=== PATIENT | male | born 1990 | race Caucasian/White ===

== ENCOUNTER 2016-12-19 16:11 | Emergency (ER) | payer MEDICAID, SELFPAY ==
[~2016-12-19] VITALS: Ht 177.8 cm; Wt 86.4 kg
[~2016-12-19 16:11] MED LIST: /AUGM875TA OR; AUGMENTIN PO; COMBVENT INH; FISH1000 OR; GLIM1TAB OR; GLUC1000 OR; LISI2.5T OR; VITAMIN D-3 PO; prednisone PO; zpack PO
[2016-12-19 21:45] VITALS: BP 145/86
== END 2016-12-19 21:46 | disposition home or self-care (01) ==
LOC: M ED 16:11
DX: F43.0 Acute stress reaction (principal); I10 Essential (primary) hypertension; F17.200 Nicotine dependence, unspecified, uncomplicated; Z79.899 Other long term (current) drug therapy; Z88.2 Allergy status to sulfonamides; Z88.6 Allergy status to analgesic agent

== ENCOUNTER → 2016-12-31 | Outpatient (REF) | payer MEDICAID ==
[2016-12-31 12:10] LABS: ANION GAP 6 MEQ/L (8-16); BLOOD UREA NITROGEN 9 MG/DL (7-18); CALCIUM LEVEL 9.4 MG/DL (8.5-10.1); CARBON DIOXIDE LEVEL 34 MEQ/L (21-32); CHLORIDE LEVEL 96 MEQ/L (98-107); CREATININE FOR GFR 0.79 MG/DL (0.70-1.30); GLOMERULAR FILTRATION RATE > 60.0 (>60); GLUCOSE, FASTING 355 MG/DL (70-105); POTASSIUM SERUM 4.3 MEQ/L (3.5-5.1); SODIUM LEVEL 136 MEQ/L (136-145)
== END ==
LOC: M SFHCPLAZ 09:18
PROVIDERS: ATTEND Family Medicine
DX: Z86.39 Personal history of other endocrine, nutritional and metabolic disease (principal)

== ENCOUNTER 2017-02-26 16:00 | Outpatient (RCR) | payer MEDICAID | END 2017-02-27 | LOC: M OUTALCOH 16:00 | PROVIDERS: ATTEND Psychiatry & Neurology Psychiatry | DX: F10.10 Alcohol abuse, uncomplicated (principal) ==

== ENCOUNTER 2017-03-04 16:00 | Outpatient (RCR) | payer MEDICAID | END 2017-03-30 | LOC: M OUTALCOH 03-10 16:00 | DX: F10.10 Alcohol abuse, uncomplicated (principal) ==

== ENCOUNTER 2017-04-10 14:20 | Outpatient (RCR) | payer MEDICAID | END 2017-04-30 | LOC: M OUTALCOH 04-25 11:00 | DX: F10.10 Alcohol abuse, uncomplicated (principal) ==

== ENCOUNTER → 2017-05-10 | Outpatient (REF) | payer MEDICAID ==
[2017-05-10 14:40] LABS: INFLUENZA A AMPLIFICATION NEGATIVE (NEGATIVE); INFLUENZA B AMPLIFICATION NEGATIVE (NEGATIVE); RSV AMPLIFICATION NEGATIVE (NEGATIVE)
== END ==
LOC: M LAB REF 13:51
DX: J11.1 Influenza due to unidentified influenza virus with other respiratory manifestations (principal)

== ENCOUNTER → 2017-05-28 | Outpatient (REF) | payer OTHER ==
[2017-05-28 13:20] LABS: ESTIMATED AVERAGE GLUCOSE 180 MG/DL (60-110); HEMOGLOBIN A1c 7.9 %
== END ==
LOC: M SFHCPLAZ 08:21
DX: E11.65 Type 2 diabetes mellitus with hyperglycemia (principal)
CPT/HCPCS: 83036

== ENCOUNTER → 2017-09-29 | Outpatient (REF) | payer OTHER ==
[2017-09-29 12:00] LABS: ANION GAP 9 MEQ/L (8-16); BLOOD UREA NITROGEN 10 MG/DL (7-18); CALCIUM LEVEL 8.9 MG/DL (8.5-10.1); CARBON DIOXIDE LEVEL 30 MEQ/L (21-32); CHLORIDE LEVEL 101 MEQ/L (98-107); CHOLESTEROL LEVEL 175 MG/DL (<200); CREATININE FOR GFR 0.97 MG/DL (0.70-1.30); GLOMERULAR FILTRATION RATE > 60.0 (>60); GLUCOSE, FASTING 184 MG/DL (70-100); HDL CHOLESTEROL 28 MG/DL (>40); LDL CHOLESTEROL 104.2 MG/DL (<100); NON-HDL-C 147 MG/DL; SODIUM LEVEL 140 MEQ/L (136-145); TRIGLYCERIDES LEVEL 214 MG/DL (<150)
[2017-09-29 13:19] LABS: ESTIMATED AVERAGE GLUCOSE 171 MG/DL (60-110); HEMOGLOBIN A1c 7.6 %
== END ==
LOC: M SFHCPLAZ 08:51
DX: E11.9 Type 2 diabetes mellitus without complications (principal); E78.2 Mixed hyperlipidemia
CPT/HCPCS: 83036

== ENCOUNTER 2017-11-04 05:08 | Emergency (ER) | payer OTHER ==
[2017-11-04] MEDS: TETANUS/DIPHTHERIA TOX ADSORB ADULT 0.5ML SYR/VIAL (90714) IM (07:50)
[2017-11-04] MEDS: ONDANSETRON 4MG/2ML VIAL (J2405) IV (10:07)
[2017-11-04] MEDS: MORPHINE 4 MG/ML 1ML VIAL/SYRINGE (J2270) IV (10:07)
[2017-11-04] MEDS: LORazepam 2 MG/ML VIAL (J2060) IV (10:08)
[2017-11-04] MEDS ORDERED: POLYSPORIN TOPICAL OINTMENT 15GM As Ordered (12:39)
[2017-11-04] MEDS: POLYSPORIN TOPICAL OINTMENT 15GM TOP (12:49)
== END 2017-11-04 15:02 | disposition home or self-care (01) ==
LOC: M ED 05:08
DX: S12.691A Other nondisplaced fracture of seventh cervical vertebra, initial encounter for closed fracture (principal); S50.851A Superficial foreign body of right forearm, initial encounter; S00.03XA Contusion of scalp, initial encounter; V48.5XXA Car driver injured in noncollision transport accident in traffic accident, initial encounter; Y92.410 Unspecified street and highway as the place of occurrence of the external cause; F17.200 Nicotine dependence, unspecified, uncomplicated; Z88.6 Allergy status to analgesic agent; Z88.2 Allergy status to sulfonamides; Z79.84 Long term (current) use of oral hypoglycemic drugs
CPT/HCPCS: 90714

== ENCOUNTER → 2018-01-01 | Outpatient (REF) | payer OTHER, SELFPAY ==
[2018-01-01 16:29] LABS: ESTIMATED AVERAGE GLUCOSE 154 MG/DL (60-110)
== END ==
LOC: M SFHCPLAZ 14:05
DX: E11.42 Type 2 diabetes mellitus with diabetic polyneuropathy (principal); G62.9 Polyneuropathy, unspecified
CPT/HCPCS: 82607

== ENCOUNTER → 2018-07-03 | Outpatient (REF) | payer OTHER ==
[~2018-07-03] MED LIST changes: +GLIP5TAB8 PO; +HYDR-3715 PO; +KEFL500C17 PO; +METF10004 PO; +TRUL10IN SC; +[UNRECOGNIZED DRUG - CODE] PO; +[UNRECOGNIZED DRUG - SUPPLY] XX; +test XX
[2018-07-03 17:35] LABS: INFLUENZA A AMPLIFICATION NEGATIVE (NEGATIVE); INFLUENZA B AMPLIFICATION NEGATIVE (NEGATIVE)
== END ==
LOC: M LAB REF 16:48
PROVIDERS: ATTEND Physician Assistant
DX: J11.1 Influenza due to unidentified influenza virus with other respiratory manifestations (principal)

== ENCOUNTER → 2018-07-09 | Outpatient (REF) | payer OTHER ==
[2018-07-09 13:54] LABS: INR 0.89; PROTHROMBIN TIME 12.1 SECONDS (12.1-14.4)
[2018-07-09 13:55] LABS: PARTIAL THROMBOPLASTIN TIME 26.3 SECONDS (25.4-37.6)
== END ==
LOC: M LABDRAW1 13:00
PROVIDERS: ATTEND Physical Medicine & Rehabilitation
DX: Z01.812 Encounter for preprocedural laboratory examination (principal)

== ENCOUNTER → 2018-07-20 | Outpatient (REF) | payer OTHER ==
[2018-07-20 16:15] LABS: BLOOD UREA NITROGEN 11 MG/DL (7-18); CREATININE FOR GFR 0.77 MG/DL (0.70-1.30); GLOMERULAR FILTRATION RATE > 60.0 (>60)
== END ==
LOC: M LABDRAW1 15:29
PROVIDERS: ATTEND Physician Assistant
DX: M47.27 Other spondylosis with radiculopathy, lumbosacral region (principal); M51.37 Other intervertebral disc degeneration, lumbosacral region

== ENCOUNTER → 2019-12-17 | Outpatient (CLI) | payer OTHER ==
[2019-12-17 15:36] LABS: BLOOD UREA NITROGEN 12 MG/DL (7-18); C REACTIVE PROTEIN QUANTITATIV 0.41 MG/DL (0.00-0.30); CREATININE FOR GFR 0.81 MG/DL (0.70-1.30); GLOMERULAR FILTRATION RATE > 60.0 (>60); RHEUMATOID FACTOR QUANT < 10.0 IU/ML (<15.0)
[2019-12-22 13:08] LABS: ANTINUCLEAR ANTIBODIES DIRECT Negative (Negative); HLA-B27 Negative (.)
== END ==
LOC: M PLALAB 12:18
PROVIDERS: ATTEND Physician Assistant
DX: M51.27 Other intervertebral disc displacement, lumbosacral region (principal)

== ENCOUNTER → 2019-12-27 | Outpatient (CLI) | payer OTHER ==
[2019-12-27 16:47] LABS: HEMOGLOBIN A1c 11.5 %
[2019-12-27 16:59] LABS: CREATININE, URINE 91.4 MG/DL; MALB URINE SIEMENS 19.5 MG/L; MAU/CREAT RATIO 21.3 MCG/MG (0.0-30.0)
[2019-12-27 17:00] LABS: ALBUMIN 4.2 GM/DL (3.2-5.2); ALT/SGPT 57 U/L (12-78); BILIRUBIN,TOTAL 0.8 MG/DL (0.2-1.0); BLOOD UREA NITROGEN 9 MG/DL (7-18); CALCIUM LEVEL 9.2 MG/DL (8.5-10.1); CARBON DIOXIDE LEVEL 32 MEQ/L (21-32); CHLORIDE LEVEL 99 MEQ/L (98-107); CHOLESTEROL LEVEL 259 MG/DL (<200); CHOLESTEROL RISK RATIO 8.093 (<5); CREATININE FOR GFR 0.84 MG/DL (0.70-1.30); FREE T4 0.99 NG/DL (0.76-1.46); GLOMERULAR FILTRATION RATE > 60.0 (>60); GLUCOSE, FASTING 286 MG/DL (70-100); HDL CHOLESTEROL 32 MG/DL (>40); NON-HDL-C 227 MG/DL; POTASSIUM SERUM 4.2 MEQ/L (3.5-5.1); SODIUM LEVEL 136 MEQ/L (136-145); TOTAL PROTEIN 7.3 GM/DL (6.4-8.2); TRIGLYCERIDES LEVEL 499 MG/DL (<150)
== END ==
LOC: M PLALAB 13:48
PROVIDERS: ATTEND Physician Assistant
DX: E11.9 Type 2 diabetes mellitus without complications (principal); E78.2 Mixed hyperlipidemia; Z13.29 Encounter for screening for other suspected endocrine disorder; R00.0 Tachycardia, unspecified

== ENCOUNTER → 2020-04-10 | Outpatient (CLI) | payer OTHER | LOC: M LABSMTC 12:20 | PROVIDERS: ATTEND Family Medicine | DX: Z20.822 Contact with and (suspected) exposure to COVID-19 (principal) ==

== ENCOUNTER → 2020-05-10 | Outpatient (CLI) | payer OTHER ==
[2020-05-10 13:13] LABS: COLLAGEN EPINEPHRINE 157 SECONDS (74-162)
[2020-05-10 13:16] LABS: INR 0.81; PROTHROMBIN TIME 11.3 SECONDS (12.5-14.3)
[2020-05-10 13:17] LABS: PARTIAL THROMBOPLASTIN TIME 24.3 SECONDS (24.2-38.5)
== END ==
LOC: M PLALAB 11:27
PROVIDERS: ATTEND Physician Assistant
DX: M51.27 Other intervertebral disc displacement, lumbosacral region (principal)

== ENCOUNTER → 2020-05-16 | Outpatient (REF) | payer OTHER ==
[2020-05-16 15:40] LABS: HEMOGLOBIN A1c 12.4 %
[2020-05-16 15:49] LABS: BLOOD UREA NITROGEN 10 MG/DL (7-18); CALCIUM LEVEL 9.9 MG/DL (8.5-10.1); CARBON DIOXIDE LEVEL 33 MEQ/L (21-32); CHLORIDE LEVEL 96 MEQ/L (98-107); CHOLESTEROL LEVEL 316 MG/DL (<200); CHOLESTEROL RISK RATIO 10.896 (<5); CREATININE FOR GFR 0.83 MG/DL (0.70-1.30); GLOMERULAR FILTRATION RATE > 60.0 (>60); GLUCOSE, FASTING 328 MG/DL (70-100); HDL CHOLESTEROL 29 MG/DL (>40); NON-HDL-C 287 MG/DL; POTASSIUM SERUM 4.8 MEQ/L (3.5-5.1); SODIUM LEVEL 135 MEQ/L (136-145); TRIGLYCERIDES LEVEL 1368 MG/DL (<150)
== END ==
LOC: M SFHCPLAZ 12:47
PROVIDERS: ATTEND Physician Assistant
DX: E78.2 Mixed hyperlipidemia (principal); E11.65 Type 2 diabetes mellitus with hyperglycemia

== ENCOUNTER → 2020-06-12 | Outpatient (CLI) | payer OTHER ==
[2020-06-12 13:06] LABS: PLATELET COUNT, AUTOMATED 307 10^3/uL (150-450)
== END ==
LOC: M PLALAB 11:43
PROVIDERS: ATTEND Physical Medicine & Rehabilitation
DX: Z01.818 Encounter for other preprocedural examination (principal); Z79.899 Other long term (current) drug therapy

== ENCOUNTER → 2020-08-17 | Outpatient (REF) | payer OTHER ==
[2020-08-17 14:05] LABS: ALBUMIN 4.1 GM/DL (3.2-5.2); ALT/SGPT 66 U/L (12-78); BILIRUBIN,TOTAL 0.6 MG/DL (0.2-1.0); BLOOD UREA NITROGEN 11 MG/DL (7-18); CALCIUM LEVEL 9.2 MG/DL (8.5-10.1); CARBON DIOXIDE LEVEL 27 MEQ/L (21-32); CHLORIDE LEVEL 100 MEQ/L (98-107); CREATININE FOR GFR 0.69 MG/DL (0.70-1.30); GLOMERULAR FILTRATION RATE > 60.0 (>60); GLUCOSE, FASTING 313 MG/DL (70-100); POTASSIUM SERUM 4.2 MEQ/L (3.5-5.1); SODIUM LEVEL 135 MEQ/L (136-145); TOTAL PROTEIN 7.1 GM/DL (6.4-8.2)
[2020-08-17 14:48] LABS: HEMOGLOBIN A1c 11.2 %
== END ==
LOC: M PLALAB 09:18
PROVIDERS: ATTEND Physician Assistant
DX: E11.65 Type 2 diabetes mellitus with hyperglycemia (principal)

== ENCOUNTER → 2020-11-12 | Outpatient (CLI) | payer OTHER ==
--- NOTE | 2020-11-12 12:05 | REPVR ---
PROCEDURE INFORMATION: Exam: MR Lumbar Spine Without Contrast Exam date and time: 11/12/2020 9:14 AM Age: 29 years old Clinical indication: Low back pain; Additional info: Disc degeneration, R/O hnp/stenosis TECHNIQUE: Imaging protocol: Multiplanar magnetic resonance images of the lumbar spine without intravenous contrast. COMPARISON: No relevant prior studies available. FINDINGS: Vertebrae: Unremarkable. Spinal cord: Normal signal. No cord compression. L1-L2: No significant disc disease. No significant spinal canal stenosis. No neural foraminal stenosis. L2-L3: No significant disc disease. No significant spinal canal stenosis. No neural foraminal stenosis. L3-L4: No significant disc disease. No significant spinal canal stenosis. No neural foraminal stenosis. L4-L5: Mild diffuse disc bulge with mild bilateral facet joint arthropathy without any significant central spinal canal stenosis or right neural foraminal narrowing. Mild left neural foraminal narrowing. L5-S1: Disc desiccation, mild diffuse disc bulge with small central disc protrusion with annular fissure and mild bilateral facet joint arthropathy resulting in mild indentation on thecal sac, moderate right neural foraminal narrowing with abutment of exiting right L5 nerve root. Left neural foramina is patent. Soft tissues: Unremarkable. IMPRESSION: L4-L5: Mild diffuse disc bulge with mild bilateral facet joint arthropathy without any significant central spinal canal stenosis or right neural foraminal narrowing. Mild left neural foraminal narrowing. L5-S1: Disc desiccation, mild diffuse disc bulge with small central disc protrusion with annular fissure and mild bilateral facet joint arthropathy resulting in mild indentation on thecal sac, moderate right neural foraminal narrowing with abutment of exiting right L5 nerve root. Left neural foramina is patent. Electronically signed by: Ivana Sexton On 11/12/2020 12:05:22 PM
== END ==
LOC: M RAD 08:27
PROVIDERS: ATTEND Physician Assistant Surgical
DX: M51.36 Other intervertebral disc degeneration, lumbar region (principal)

== ENCOUNTER → 2020-11-20 | Outpatient (CLI) | payer OTHER ==
[2020-11-20 13:55] LABS: HEMOGLOBIN A1c 11.4 %
[2020-11-20 14:02] LABS: BLOOD UREA NITROGEN 11 MG/DL (7-18); CALCIUM LEVEL 9.2 MG/DL (8.5-10.1); CARBON DIOXIDE LEVEL 29 MEQ/L (21-32); CHLORIDE LEVEL 98 MEQ/L (98-107); CREATININE FOR GFR 0.81 MG/DL (0.70-1.30); GLOMERULAR FILTRATION RATE > 60.0 (>60); GLUCOSE, FASTING 316 MG/DL (70-100); POTASSIUM SERUM 4.7 MEQ/L (3.5-5.1); SODIUM LEVEL 135 MEQ/L (136-145)
== END ==
LOC: M PLALAB 11:12
PROVIDERS: ATTEND Physician Assistant
DX: E11.65 Type 2 diabetes mellitus with hyperglycemia (principal)

== ENCOUNTER → 2021-01-01 | Outpatient (CLI) | payer OTHER ==
--- NOTE | 2021-01-03 11:25 | REPVR ---
PROCEDURE INFORMATION: Exam: MR Head Without Contrast Exam date and time: 01/01/2021 6:44 PM Age: 30 years old Clinical indication: Pain; Headache not specified; Additional info: Acute intractable headache TECHNIQUE: Imaging protocol: MR of the head without contrast. COMPARISON: CT Head without contrast 11/04/2017 6:34 AM FINDINGS: Brain: No acute infarct identified on the diffusion-weighted imaging. No parenchymal hemorrhage. No evidence of brain parenchymal edema or intracranial mass effect. No significant white matter disease. Cerebral ventricles: No ventriculomegaly. Bones/joints: Unremarkable. Paranasal sinuses: Normal as visualized. No acute sinusitis. Mastoid air cells: Normal as visualized. No mastoid effusion. Orbital cavity: Unremarkable. Soft tissues: Unremarkable. IMPRESSION: Unremarkable MRI brain. Electronically signed by: Danna Corea On 01/03/2021 11:25:11 AM
== END ==
LOC: M RAD 17:18
PROVIDERS: ATTEND Physician Assistant
DX: R51.9 Headache, unspecified (principal)

== ENCOUNTER → 2021-02-21 | Outpatient (CLI) | payer OTHER ==
[~2021-02-21] MED LIST changes: +ISOVUE-300 61% 50ML VIAL As Ordered ONE; +LIDOCAINE 1% MDV 20ML VIAL As Ordered ONE; +methylPREDNISolone SUSP 40MG/ML 1ML VIAL (DEPO MEDROL) As Ordered ONE
--- NOTE | 2021-02-21 16:36 | REP ---
INDICATION: OTHER ARTICULAR CARTILAGE DISORDERS, RIGHT HIP. COMPARISON: None. TECHNIQUE: The procedure was performed under the direct supervision of Dr. Aguayo. The benefits and risks including but not limited to pain infection and bleeding and anaphylaxis were explained to the patient and informed consent was obtained. The right femoral neck was localized using fluoroscopic guidance. The skin was prepped and draped in a sterile fashion. 1% lidocaine was used as a local anesthetic. Using fluoroscopic guidance, and last image hold technology, a 22-gauge spinal needle was inserted and advanced to the femoral neck. 0.5 ml of Isovue-300 was injected to verify placement. Five ml of a solution containing 3 ml of 1% Xylocaine and 2 mL of Depo-Medrol 40 mg was injected. The needle was then removed. The patient tolerated the procedure well and there were no immediate complications. Less than 6 seconds of fluoro time was utilized for this procedure. FINDINGS: None IMPRESSION: Fluoro guidance for right hip injection. <Electronically signed by Paddy Newberry > 02/21/21 1603 <Electronically signed by Pravin Aguayo > 02/21/21 [id number]
== END ==
LOC: M RADPRO 10:31
PROVIDERS: ATTEND Physician Assistant Surgical
DX: M24.151 Other articular cartilage disorders, right hip (principal)
CPT/HCPCS: 20610; 77002; J1030; Q9967

== ENCOUNTER → 2021-02-28 | Outpatient (CLI) | payer OTHER ==
[~2021-02-28] MED LIST changes: -ISOVUE-300 61% 50ML VIAL As Ordered ONE; -LIDOCAINE 1% MDV 20ML VIAL As Ordered ONE; +[UNRECOGNIZED DRUG - CODE] PO; -[UNRECOGNIZED DRUG - CODE] PO; -methylPREDNISolone SUSP 40MG/ML 1ML VIAL (DEPO MEDROL) As Ordered ONE
[2021-02-28 13:37] LABS: HEMOGLOBIN A1c 10.2 %
[2021-02-28 13:44] LABS: MALB URINE SIEMENS 29.3 MG/L
[2021-02-28 13:56] LABS: ALBUMIN 4.2 GM/DL (3.2-5.2); ALT/SGPT 59 U/L (12-78); BILIRUBIN,TOTAL 0.5 MG/DL (0.2-1.0); BLOOD UREA NITROGEN 14 MG/DL (7-18); CALCIUM LEVEL 10.9 MG/DL (8.5-10.1); CARBON DIOXIDE LEVEL 34 MEQ/L (21-32); CHLORIDE LEVEL 95 MEQ/L (98-107); CHOLESTEROL LEVEL 232 MG/DL (<200); CHOLESTEROL RISK RATIO 8.285 (<5); CREATININE FOR GFR 0.87 MG/DL (0.70-1.30); GLOMERULAR FILTRATION RATE > 60.0 (>60); GLUCOSE, FASTING 284 MG/DL (70-100); HDL CHOLESTEROL 28 MG/DL (>40); NON-HDL-C 204 MG/DL; POTASSIUM SERUM 4.4 MEQ/L (3.5-5.1); SODIUM LEVEL 135 MEQ/L (136-145); TOTAL PROTEIN 7.8 GM/DL (6.4-8.2); TRIGLYCERIDES LEVEL 617 MG/DL (<150)
[2021-02-28 13:58] LABS: TOTAL 25(OH) VITAMIN D 14.6 NG/ML (30.0-100.0)
== END ==
LOC: M PLALAB 10:08
PROVIDERS: ATTEND Nurse Practitioner Adult Health
DX: E11.65 Type 2 diabetes mellitus with hyperglycemia (principal); R25.2 Cramp and spasm; E78.2 Mixed hyperlipidemia; Z13.29 Encounter for screening for other suspected endocrine disorder

== ENCOUNTER → 2021-05-15 | Outpatient (CLI) | payer OTHER ==
[2021-05-15 11:19] LABS: BASO # 0.1 10^3/uL (0.0-0.2); BASO % 0.7 % (0.0-1.0); EOS # 0.3 10^3/uL (0.0-0.5); EOS % 3.7 % (0.0-3.0); HEMATOCRIT 51.2 % (42.0-52.0); HEMOGLOBIN 17.3 g/dl (13.5-17.5); LYMPH # 2.6 10^3/uL (1.5-5.0); LYMPH % 31.3 % (24.0-44.0); MEAN CORPUSCULAR HGB CONC 33.8 g/dl (32.0-36.5); MEAN CORPUSCULAR VOLUME 88.9 fl (80.0-96.0); MONO # 0.6 10^3/uL (0.0-0.8); MONO % 7.4 % (2.0-8.0); NEUTROPHILS # 4.7 10^3/uL (1.5-8.5); NEUTROPHILS % 56.5 % (36.0-66.0); PLATELET COUNT, AUTOMATED 295 10^3/uL (150-450); RED BLOOD COUNT 5.76 10^6/uL (4.30-6.10); WHITE BLOOD COUNT 8.3 10^3/uL (4.0-10.0)
[2021-05-15 11:48] LABS: ALT/SGPT 61 U/L (12-78); BILIRUBIN,TOTAL 0.6 MG/DL (0.2-1.0); BLOOD UREA NITROGEN 8 MG/DL (7-18); CALCIUM LEVEL 9.1 MG/DL (8.5-10.1); CARBON DIOXIDE LEVEL 29 MEQ/L (21-32); CHLORIDE LEVEL 100 MEQ/L (98-107); CREATININE FOR GFR 0.77 MG/DL (0.70-1.30); GLOMERULAR FILTRATION RATE > 60.0 (>60); GLUCOSE, FASTING 258 MG/DL (70-100); POTASSIUM SERUM 4.7 MEQ/L (3.5-5.1); SODIUM LEVEL 136 MEQ/L (136-145)
[2021-05-15 12:07] LABS: HEMOGLOBIN A1c 9.2 %
== END ==
LOC: M PLALAB 08:51
PROVIDERS: ATTEND Internal Medicine
DX: Z01.818 Encounter for other preprocedural examination (principal)

== ENCOUNTER → 2021-05-15 | Outpatient (REF) | payer OTHER | LOC: M SFHCPLAZ 08:30 | PROVIDERS: ATTEND Internal Medicine | DX: Z01.818 Encounter for other preprocedural examination (principal); E11.65 Type 2 diabetes mellitus with hyperglycemia; Z53.9 Procedure and treatment not carried out, unspecified reason ==

== ENCOUNTER → 2021-06-08 | Outpatient (CLI) | payer OTHER | LOC: M RAD 07:30 | PROVIDERS: ATTEND Nurse Practitioner Adult Health | DX: K76.0 Fatty (change of) liver, not elsewhere classified (principal) ==

== ENCOUNTER → 2022-06-18 | Outpatient (CLI) | payer OTHER ==
[2022-06-18 14:02] LABS: HEMATOCRIT 53.4 % (42.0-52.0); HEMOGLOBIN 17.7 g/dl (13.5-17.5); MEAN CORPUSCULAR HEMOGLOBIN 30.8 pg (27.0-33.0); MEAN CORPUSCULAR HGB CONC 33.1 g/dl (32.0-36.5); PLATELET COUNT, AUTOMATED 260 10^3/uL (150-450); RED BLOOD COUNT 5.74 10^6/uL (4.30-6.10); WHITE BLOOD COUNT 10.2 10^3/uL (4.0-10.0)
[2022-06-18 14:11] LABS: ALBUMIN 4.4 G/DL (3.2-5.2); ALKALINE PHOSPHATASE 86 U/L (46-116); ALT/SGPT 45 U/L (7.0-40); AST/SGOT 18 U/L (<34); BILIRUBIN,TOTAL 1.2 MG/DL (0.3-1.2); BLOOD UREA NITROGEN 16 MG/DL (9-23); CALCIUM LEVEL 9.5 MG/DL (8.5-10.1); CARBON DIOXIDE LEVEL 34 MMOL/L (20-31); CHLORIDE LEVEL 98 MMOL/L (98-107); CHOLESTEROL LEVEL 112 MG/DL (<200); CHOLESTEROL RISK RATIO 3.83 (<5); CREATININE FOR GFR 0.68 MG/DL (0.70-1.30); GLOMERULAR FILTRATION RATE > 60.0 (>60); GLUCOSE, FASTING 213 MG/DL (60-100); HDL CHOLESTEROL 29.2 MG/DL (>40); HEMOGLOBIN A1c 7.6 % (4.0-6.0); LDL CHOLESTEROL 45.8 MG/DL (<100); MAGNESIUM LEVEL 1.9 MG/DL (1.8-2.4); NON-HDL-C 82.8 MG/DL; POTASSIUM SERUM 4.1 MMOL/L (3.5-5.1); SODIUM LEVEL 138 MMOL/L (136-145); TOTAL PROTEIN 6.9 G/DL (5.7-8.2); TRIGLYCERIDES LEVEL 185 MG/DL (<150)
[2022-06-18 14:12] LABS: CREATININE, URINE 52.1 MG/DL; THYROID STIMULATING HORMONE 1.212 uIU/ML (0.55-4.78); TOTAL 25(OH) VITAMIN D 51.6 NG/ML (20.0-100.0)
[2022-06-18 14:14] LABS: MAU/CREAT RATIO 11.5 MCG/MG (0.0-30.0)
== END ==
LOC: M PLALAB 10:43
PROVIDERS: ATTEND Nurse Practitioner Adult Health
DX: E11.65 Type 2 diabetes mellitus with hyperglycemia (principal); E78.2 Mixed hyperlipidemia; R25.2 Cramp and spasm; E55.9 Vitamin D deficiency, unspecified; Z13.29 Encounter for screening for other suspected endocrine disorder

== ENCOUNTER → 2022-06-27 | Outpatient (CLI) | payer OTHER | LOC: M PLAIMG 14:05 | PROVIDERS: ATTEND Nurse Practitioner Adult Health | DX: M25.551 Pain in right hip (principal) ==

== ENCOUNTER → 2022-07-29 | Outpatient (CLI) | payer OTHER | LOC: M WHC 10:19 | PROVIDERS: ATTEND Nurse Practitioner Adult Health | DX: K76.0 Fatty (change of) liver, not elsewhere classified (principal) ==

== ENCOUNTER 2023-03-12 22:24 | Emergency (ER) | payer OTHER ==
[~2023-03-12] VITALS: Ht 180.3 cm; Wt 97.3 kg
[~2023-03-12 22:24] MED LIST changes: +GLIP5TAB17 PO; -GLIP5TAB8 PO
[2023-03-12] MEDS ORDERED: BASA100I (22:36)
[2023-03-12] MEDS ORDERED: ERGO500029 (22:36)
[2023-03-12] MEDS ORDERED: STEG15TA (22:36)
[2023-03-12] MEDS ORDERED: DULA4.5P (22:36)
[2023-03-12] MEDS ORDERED: ATOR40TA75 (22:36)
[2023-03-12 23:07] LABS: BASO # 0.1 10^3/uL (0.0-0.2); BASO % 0.4 % (0.0-1.0); EOS % 0.3 % (0.0-3.0); HEMATOCRIT 54.3 % (42.0-52.0); HEMOGLOBIN 18.4 g/dl (13.5-17.5); LYMPH # 1.7 10^3/uL (1.5-5.0); LYMPH % 11.7 % (24.0-44.0); MEAN CORPUSCULAR HEMOGLOBIN 29.7 pg (27.0-33.0); MEAN CORPUSCULAR HGB CONC 33.9 g/dl (32.0-36.5); MEAN CORPUSCULAR VOLUME 87.7 fl (80.0-96.0); MONO # 0.6 10^3/uL (0.0-0.8); MONO % 4.4 % (2.0-8.0); NEUTROPHILS # 11.7 10^3/uL (1.5-8.5); NEUTROPHILS % 82.6 % (36.0-66.0); PLATELET COUNT, AUTOMATED 295 10^3/uL (150-450); RED BLOOD COUNT 6.19 10^6/uL (4.30-6.10); WHITE BLOOD COUNT 14.1 10^3/uL (4.0-10.0)
[2023-03-12 23:28] LABS: LIPASE 24 U/L (12-53)
[2023-03-12 23:30] LABS: ALBUMIN 4.7 G/DL (3.2-5.2); ALKALINE PHOSPHATASE 79 U/L (46-116); ALT/SGPT 45 U/L (7.0-40); AST/SGOT 19 U/L (<34); BILIRUBIN,DIRECT 0.4 MG/DL (<0.4); BILIRUBIN,TOTAL 1.4 MG/DL (0.3-1.2); BLOOD UREA NITROGEN 17 MG/DL (9-23); CALCIUM LEVEL 9.4 MG/DL (8.5-10.1); CARBON DIOXIDE LEVEL 23 MMOL/L (20-31); CHLORIDE LEVEL 98 MMOL/L (98-107); CREATININE FOR GFR 0.69 MG/DL (0.70-1.30); GLOMERULAR FILTRATION RATE > 60.0 (>60); GLUCOSE, FASTING 108 MG/DL (60-100); SODIUM LEVEL 137 MMOL/L (136-145); TOTAL PROTEIN 7.6 G/DL (5.7-8.2)
[2023-03-13] MEDS ORDERED: NS 1,000 ML IV ONE (01:05)
[2023-03-13] MEDS ORDERED: ONDA4TAB6 PO (03:10)
[2023-03-13 04:22] VITALS: BP 123/78; TEMP 97.9; O2SAT 99
== END 2023-03-13 04:23 | disposition home or self-care (01) ==
LOC: M ED 22:24
DX: K80.20 Calculus of gallbladder without cholecystitis without obstruction (principal); R00.0 Tachycardia, unspecified; E11.9 Type 2 diabetes mellitus without complications; E78.5 Hyperlipidemia, unspecified; F17.200 Nicotine dependence, unspecified, uncomplicated; F10.10 Alcohol abuse, uncomplicated; Z88.2 Allergy status to sulfonamides; Z88.6 Allergy status to analgesic agent; Z79.02 Long term (current) use of antithrombotics/antiplatelets; Z79.4 Long term (current) use of insulin; Z79.83 Long term (current) use of bisphosphonates; Z79.899 Other long term (current) drug therapy

== ENCOUNTER → 2023-03-19 | Outpatient (CLI) | payer OTHER ==
[~2023-03-19] MED LIST changes: +ATOR40TA75; +BASA100I; +DULA4.5P; +ERGO500029; +ONDA4TAB6 PO; +STEG15TA
[2023-03-19 14:00] LABS: HEMATOCRIT 52.1 % (42.0-52.0); HEMOGLOBIN 17.9 g/dl (13.5-17.5); MEAN CORPUSCULAR HEMOGLOBIN 30.6 pg (27.0-33.0); MEAN CORPUSCULAR HGB CONC 34.4 g/dl (32.0-36.5); MEAN CORPUSCULAR VOLUME 89.1 fl (80.0-96.0); PLATELET COUNT, AUTOMATED 302 10^3/uL (150-450); RED BLOOD COUNT 5.85 10^6/uL (4.30-6.10); WHITE BLOOD COUNT 7.2 10^3/uL (4.0-10.0)
[2023-03-19 14:24] LABS: HEMOGLOBIN A1c 8.3 % (4.0-6.0)
[2023-03-19 14:30] LABS: ALBUMIN 4.5 G/DL (3.2-5.2); ALKALINE PHOSPHATASE 73 U/L (46-116); ALT/SGPT 43 U/L (7.0-40); AST/SGOT 13 U/L (<34); BILIRUBIN,TOTAL 0.8 MG/DL (0.3-1.2); BLOOD UREA NITROGEN 10 MG/DL (9-23); CALCIUM LEVEL 10.4 MG/DL (8.5-10.1); CARBON DIOXIDE LEVEL 33 MMOL/L (20-31); CHLORIDE LEVEL 103 MMOL/L (98-107); CREATININE FOR GFR 0.65 MG/DL (0.70-1.30); GLOMERULAR FILTRATION RATE > 60.0 (>60); GLUCOSE, FASTING 125 MG/DL (60-100); POTASSIUM SERUM 4.7 MMOL/L (3.5-5.1); SODIUM LEVEL 140 MMOL/L (136-145); TOTAL PROTEIN 7.1 G/DL (5.7-8.2)
== END ==
LOC: M PLALAB 10:36
PROVIDERS: ATTEND Nurse Practitioner Adult Health
DX: K81.9 Cholecystitis, unspecified (principal); E11.65 Type 2 diabetes mellitus with hyperglycemia

== ENCOUNTER → 2023-06-02 | Outpatient (CLI) | payer OTHER ==
[2023-06-02 13:19] LABS: ALBUMIN 4.1 G/DL (3.2-5.2); ALKALINE PHOSPHATASE 86 U/L (46-116); ALT/SGPT 40 U/L (7.0-40); AST/SGOT 15 U/L (<34); BILIRUBIN,TOTAL 0.6 MG/DL (0.3-1.2); BLOOD UREA NITROGEN 12 MG/DL (9-23); CALCIUM LEVEL 9.2 MG/DL (8.5-10.1); CARBON DIOXIDE LEVEL 33 MMOL/L (20-31); CHLORIDE LEVEL 102 MMOL/L (98-107); CREATININE FOR GFR 0.75 MG/DL (0.70-1.30); GLOMERULAR FILTRATION RATE > 60.0 (>60); GLUCOSE, FASTING 190 MG/DL (60-100); POTASSIUM SERUM 4.8 MMOL/L (3.5-5.1); SODIUM LEVEL 138 MMOL/L (136-145); TOTAL PROTEIN 6.7 G/DL (5.7-8.2)
[2023-06-02 13:27] LABS: HEMOGLOBIN A1c 9.3 % (4.0-6.0)
== END ==
LOC: M PLALAB 10:56
PROVIDERS: ATTEND Nurse Practitioner Adult Health
DX: E11.65 Type 2 diabetes mellitus with hyperglycemia (principal); K81.9 Cholecystitis, unspecified

== ENCOUNTER → 2023-08-14 | Outpatient (CLI) | payer OTHER ==
[~2023-08-14] MED LIST changes: -ATOR40TA75; +ATOR40TA75 PO; -BASA100I; +BASA100I SQ; -ERGO500029; +ERGO500029 PO; +IBUP-1022 PO; -STEG15TA; +STEG15TA PO; +SUMA100T2
[2023-08-14 12:47] LABS: BASO # 0.1 10^3/uL (0.0-0.2); BASO % 0.6 % (0.0-1.0); EOS # 0.4 10^3/uL (0.0-0.5); EOS % 3.7 % (0.0-3.0); HEMOGLOBIN 18.2 g/dl (13.5-17.5); LYMPH # 2.7 10^3/uL (1.5-5.0); LYMPH % 26.6 % (24.0-44.0); MEAN CORPUSCULAR HGB CONC 34.3 g/dl (32.0-36.5); MEAN CORPUSCULAR VOLUME 90.1 fl (80.0-96.0); MONO # 0.8 10^3/uL (0.0-0.8); MONO % 7.5 % (2.0-8.0); NEUTROPHILS # 6.2 10^3/uL (1.5-8.5); NEUTROPHILS % 61.2 % (36.0-66.0); PLATELET COUNT, AUTOMATED 298 10^3/uL (150-450); RED BLOOD COUNT 5.88 10^6/uL (4.30-6.10); WHITE BLOOD COUNT 10.1 10^3/uL (4.0-10.0)
[2023-08-14 12:58] LABS: INR 0.95; PARTIAL THROMBOPLASTIN TIME 27.8 SECONDS (24.8-34.2); PROTHROMBIN TIME 12.4 SECONDS (12.5-14.5)
[2023-08-14 13:17] LABS: ALBUMIN 4.5 G/DL (3.2-5.2); ALKALINE PHOSPHATASE 84 U/L (46-116); ALT/SGPT 46 U/L (7.0-40); AST/SGOT 13 U/L (<34); BLOOD UREA NITROGEN 12 MG/DL (9-23); CARBON DIOXIDE LEVEL 31 MMOL/L (20-31); CHLORIDE LEVEL 98 MMOL/L (98-107); CREATININE FOR GFR 0.74 MG/DL (0.70-1.30); GLOMERULAR FILTRATION RATE > 60.0 (>60); GLUCOSE, FASTING 201 MG/DL (60-100); POTASSIUM SERUM 4.8 MMOL/L (3.5-5.1); SODIUM LEVEL 138 MMOL/L (136-145); TOTAL PROTEIN 7.3 G/DL (5.7-8.2)
== END ==
LOC: M PLALAB 10:37
PROVIDERS: ATTEND Internal Medicine Hematology
DX: Z01.818 Encounter for other preprocedural examination (principal)

== ENCOUNTER 2023-08-21 09:43 | Day surgery (SDC) | payer OTHER ==
[~2023-08-21] VITALS: Ht 177.8 cm; Wt 89.4 kg
[2023-08-21] MEDS ORDERED: INSULIN LISPRO (NovoLOG) PER UNIT SC PRN (10:50)
[2023-08-21] MEDS ORDERED: DEXTROSE 50% 50ML SYRINGE IV PRN (10:50)
[2023-08-21] MEDS ORDERED: GLUCAGON INJ 1MG VIAL SC PRN (10:50)
[2023-08-21] MEDS ORDERED: GLUCOSE 4 GM CHEW PO PRN (10:50)
[2023-08-21] MEDS: LR 1,000 ML IV SCH (11:15)
[2023-08-21] MEDS ORDERED: propofoL 200 MG/20 ML VIAL As Ordered ONE (12:27)
[2023-08-21] MEDS ORDERED: fentaNYL 100 MCG/2 ML INJECTION As Ordered ONE (12:27)
[2023-08-21] MEDS ORDERED: ROCURONIUM BROMIDE 50MG/5ML VIAL As Ordered ONE (12:27)
[2023-08-21] MEDS ORDERED: MIDAZOLAM INJ 2MG/2ML VIAL As Ordered ONE (12:28)
[2023-08-21] MEDS: INDOCYANINE GREEN 25MG VIAL (IC-GREEN) As Ordered ONE (14:02)
[2023-08-21] MEDS: ceFAZolin SOD 2 GM in IV 1 EA IV ONE (14:15)
[2023-08-21] MEDS: HEPARIN SOD (PORCINE) 5000UNITS/ML 1ML VIAL/SYRINGE SQ ONE (14:15)
[2023-08-21] MEDS ORDERED: ACETAMINOPHEN 1000MG 100ML IV BAG As Ordered ONE (14:19)
[2023-08-21] MEDS ORDERED: ONDANSETRON 4MG 2ML VIAL As Ordered ONE (14:41)
[2023-08-21] MEDS: INDOCYANINE GREEN 25MG VIAL (IC-GREEN) IV ONE (14:45)
[2023-08-21] MEDS ORDERED: KETOROLAC 60MG 2ML VIAL As Ordered ONE (15:05)
[2023-08-21] MEDS ORDERED: oxyCODONE 5MG TAB PO PRN (15:25)
[2023-08-21] MEDS ORDERED: fentaNYL 100 MCG/2 ML INJECTION IV PRN (15:25)
[2023-08-21] MEDS ORDERED: MEPERIDINE 25 MG/ML 1ML VIAL IV PRN (15:25)
[2023-08-21] MEDS ORDERED: LR 1,000 ML IV SCH (15:25)
[2023-08-21] MEDS ORDERED: HYDROMORPHONE HCL 0.5 MG/ 0.5 ML SYRINGE IV PRN (15:25)
[2023-08-21] MEDS ORDERED: ONDANSETRON 4MG 2ML VIAL IV PRN (15:25)
[2023-08-21] MEDS ORDERED: METOCLOPRAMIDE INJ 10MG/2ML VIAL IV PRN (15:25)
[2023-08-21] MEDS ORDERED: diphenhydrAMINE 50MG/ML VIAL IV PRN (15:25)
[2023-08-21] MEDS ORDERED: HYDR-3715 PO (15:56)
[2023-08-21 16:05] VITALS: BP 159/90; TEMP 98; O2SAT 93
== END 2023-08-21 17:11 | disposition home or self-care (01) ==
LOC: M SDC 09:43
PROVIDERS: ATTEND Surgery
DX: K80.20 Calculus of gallbladder without cholecystitis without obstruction (principal); K66.0 Peritoneal adhesions (postprocedural) (postinfection); E11.9 Type 2 diabetes mellitus without complications; Z79.899 Other long term (current) drug therapy; Z79.4 Long term (current) use of insulin; Z79.85 Long-term (current) use of injectable non-insulin antidiabetic drugs; F17.210 Nicotine dependence, cigarettes, uncomplicated; Z88.2 Allergy status to sulfonamides; Z88.6 Allergy status to analgesic agent
CPT/HCPCS: 47562; 88304; J0131; J0665; J0690; J1100; J1885; J2250; J2405; J3010; Q9968; S2900

== ENCOUNTER → 2023-09-01 | Outpatient (CLI) | payer OTHER ==
[~2023-09-01] MED LIST changes: +ONDA-282 PO; -ONDA4TAB6 PO
[2023-09-01 14:04] LABS: HEMOGLOBIN A1c 8.6 % (4.0-6.0)
== END ==
LOC: M PLALAB 10:15
PROVIDERS: ATTEND Nurse Practitioner Adult Health
DX: E11.65 Type 2 diabetes mellitus with hyperglycemia (principal)

== ENCOUNTER → 2023-11-21 | Outpatient (REF) | LOC: M EMP 10:06 | PROVIDERS: ATTEND Family Medicine | DX: Z01.89 Encounter for other specified special examinations (principal) ==

== ENCOUNTER → 2024-02-11 | Outpatient (CLI) | payer OTHER ==
[2024-02-11 12:00] LABS: HEMOGLOBIN A1c 11.4 % (4.0-6.0)
[2024-02-11 12:16] LABS: ALBUMIN 4.1 G/DL (3.2-5.2); ALKALINE PHOSPHATASE 96 U/L (40-129); ALT/SGPT 46 U/L (7.0-40); AST/SGOT 19 U/L (<34); BILIRUBIN,TOTAL 0.6 MG/DL (0.3-1.2); BLOOD UREA NITROGEN 14 MG/DL (9-23); CALCIUM LEVEL 9.4 MG/DL (8.5-10.1); CARBON DIOXIDE LEVEL 30 MMOL/L (20-31); CHLORIDE LEVEL 99 MMOL/L (98-107); CREATININE FOR GFR 0.71 MG/DL (0.70-1.30); GLOMERULAR FILTRATION RATE > 60.0 (>60); GLUCOSE, FASTING 298 MG/DL (60-100); POTASSIUM SERUM 4.8 MMOL/L (3.5-5.1); SODIUM LEVEL 136 MMOL/L (136-145); TOTAL PROTEIN 7.3 G/DL (5.7-8.2)
== END ==
LOC: M PLALAB 07:26
PROVIDERS: ATTEND Nurse Practitioner Adult Health
DX: E11.65 Type 2 diabetes mellitus with hyperglycemia (principal)

== ENCOUNTER → 2024-06-14 | Outpatient (CLI) | payer OTHER ==
[2024-06-14 13:38] LABS: HEMOGLOBIN A1c 8.3 % (4.0-6.0)
== END ==
LOC: M PLALAB 09:46
PROVIDERS: ATTEND Nurse Practitioner Family
DX: E11.65 Type 2 diabetes mellitus with hyperglycemia (principal)

== ENCOUNTER → 2024-06-14 | Outpatient (CLI) | payer OTHER ==
[2024-06-14 13:27] LABS: ALBUMIN 4.4 G/DL (3.2-5.2); ALKALINE PHOSPHATASE 80 U/L (40-129); ALT/SGPT 63 U/L (7.0-40); AST/SGOT 17 U/L (<34); BILIRUBIN,TOTAL 0.7 MG/DL (0.3-1.2); BLOOD UREA NITROGEN 19 MG/DL (9-23); CALCIUM LEVEL 10.3 MG/DL (8.5-10.1); CARBON DIOXIDE LEVEL 30 MMOL/L (20-31); CHLORIDE LEVEL 99 MMOL/L (98-107); CHOLESTEROL LEVEL 121 MG/DL (<200); CHOLESTEROL RISK RATIO 3.94 (<5); CREATININE FOR GFR 0.77 MG/DL (0.70-1.30); GLOMERULAR FILTRATION RATE > 60.0 (>60); GLUCOSE, FASTING 215 MG/DL (60-100); HDL CHOLESTEROL 30.7 MG/DL (>40); LDL CHOLESTEROL 20.9 MG/DL (<100); NON-HDL-C 90.3 MG/DL; POTASSIUM SERUM 4.9 MMOL/L (3.5-5.1); SODIUM LEVEL 139 MMOL/L (136-145); TOTAL PROTEIN 7.4 G/DL (5.7-8.2); TRIGLYCERIDES LEVEL 347 MG/DL (<150)
[2024-06-14 13:37] LABS: HEMOGLOBIN A1c 8.3 % (4.0-6.0)
[2024-06-14 14:18] LABS: CREATININE, URINE 30.2 MG/DL; MAU/CREAT RATIO 36.4 MCG/MG (0.0-30.0)
== END ==
LOC: M PLALAB 09:48
PROVIDERS: ATTEND Nurse Practitioner Adult Health
DX: E11.65 Type 2 diabetes mellitus with hyperglycemia (principal)

== ENCOUNTER 2024-08-03 12:48 | Emergency (ER) | payer OTHER ==
[~2024-08-03] VITALS: Ht 177.8 cm; Wt 90.6 kg
[2024-08-03 13:21] LABS: BASO # 0.1 10^3/uL (0.0-0.2); BASO % 0.4 % (0.0-1.0); EOS # 0.2 10^3/uL (0.0-0.5); EOS % 1.8 % (0.0-3.0); HEMATOCRIT 53.9 % (42.0-52.0); HEMOGLOBIN 18.7 g/dl (13.5-17.5); LYMPH # 2.7 10^3/uL (1.5-5.0); LYMPH % 23.1 % (24.0-44.0); MEAN CORPUSCULAR HEMOGLOBIN 30.8 pg (27.0-33.0); MEAN CORPUSCULAR HGB CONC 34.7 g/dl (32.0-36.5); MEAN CORPUSCULAR VOLUME 88.8 fl (80.0-96.0); MONO # 0.8 10^3/uL (0.0-0.8); MONO % 6.8 % (2.0-8.0); NEUTROPHILS # 7.9 10^3/uL (1.5-8.5); NEUTROPHILS % 67.4 % (36.0-66.0); PLATELET COUNT, AUTOMATED 322 10^3/uL (150-450); RED BLOOD COUNT 6.07 10^6/uL (4.30-6.10); WHITE BLOOD COUNT 11.8 10^3/uL (4.0-10.0)
[2024-08-03 13:55] LABS: BLOOD UREA NITROGEN 13 MG/DL (9-23); CALCIUM LEVEL 9.6 MG/DL (8.5-10.1); CARBON DIOXIDE LEVEL 28 MMOL/L (20-31); CHLORIDE LEVEL 94 MMOL/L (98-107); CK-MB VALUE MASS 2.9 NG/ML (<3.6); CREATININE FOR GFR 0.65 MG/DL (0.70-1.30); GLOMERULAR FILTRATION RATE > 90.0 (>60); GLUCOSE, FASTING 218 MG/DL (60-100); POTASSIUM SERUM 4.1 MMOL/L (3.5-5.1); SODIUM LEVEL 136 MMOL/L (136-145)
[2024-08-03 13:58] LABS: CPK CREATINE PHOSPHOKINASE 214 U/L (46-171); MB/CK RELATIVE INDEX 1.35 (< OR =4)
[2024-08-03 17:25] VITALS: TEMP 97.5
[2024-08-03] MEDS: NS (Normal Saline) 0.9% 1,000 ML IV ONE (18:35)
[2024-08-03] MEDS ORDERED: ISOVUE-370 76% 100ML VIAL As Ordered ONE (18:36)
[2024-08-03 19:22] LABS: CK-MB VALUE MASS 1.8 NG/ML (<3.6)
[2024-08-03 19:25] LABS: MB/CK RELATIVE INDEX 1.06 (< OR =4)
[2024-08-03] MEDS: KETOROLAC 30 MG/ML 1ML VIAL IV ONE (19:35)
[2024-08-03 20:45] VITALS: BP 131/84; O2SAT 97
== END 2024-08-03 20:57 | disposition home or self-care (01) ==
LOC: M ED 12:48
DX: R07.9 Chest pain, unspecified (principal); R00.0 Tachycardia, unspecified; E11.9 Type 2 diabetes mellitus without complications; E78.5 Hyperlipidemia, unspecified; J45.909 Unspecified asthma, uncomplicated; F17.200 Nicotine dependence, unspecified, uncomplicated; F10.10 Alcohol abuse, uncomplicated; Z88.2 Allergy status to sulfonamides; Z88.6 Allergy status to analgesic agent; Z79.02 Long term (current) use of antithrombotics/antiplatelets; Z79.4 Long term (current) use of insulin; Z79.899 Other long term (current) drug therapy
CPT/HCPCS: 71275; 80048; 82550; 82553; 84484; 85025; 93005; 96361; 96374; 99285; J1885; Q9967

== ENCOUNTER → 2025-03-18 | Outpatient (CLI) | payer OTHER ==
[~2025-03-18] MED LIST changes: -IBUP-1022 PO; +IBUP600T42 PO
[2025-03-18 12:14] LABS: ALT/SGPT 48 U/L (7.0-40); AST/SGOT 23 U/L (<34); CALCIUM LEVEL 9.6 MG/DL (8.5-10.1); CARBON DIOXIDE LEVEL 31 MMOL/L (20-31); CHLORIDE LEVEL 100 MMOL/L (98-107); CHOLESTEROL LEVEL 105 MG/DL (<200); CHOLESTEROL RISK RATIO 3.58 (<5); CREATININE FOR GFR 0.88 MG/DL (0.70-1.30); GLOMERULAR FILTRATION RATE > 90.0 (>60); LDL CHOLESTEROL 34.9 MG/DL (<100); NON-HDL-C 75.7 MG/DL; POTASSIUM SERUM 4.9 MMOL/L (3.5-5.1); SODIUM LEVEL 138 MMOL/L (136-145); TRIGLYCERIDES LEVEL 204 MG/DL (<150)
[2025-03-18 13:14] LABS: ESTIMATED AVERAGE GLUCOSE 137.0 MG/DL (60-110)
== END ==
LOC: M PLALAB 08:45
PROVIDERS: ATTEND Nurse Practitioner Adult Health
DX: E11.65 Type 2 diabetes mellitus with hyperglycemia (principal); E78.2 Mixed hyperlipidemia; E55.9 Vitamin D deficiency, unspecified